=== PATIENT | male | born 1960 | race African-American/Black ===

== ENCOUNTER 2023-02-04 09:04 | Inpatient (IN) | payer OTHER ==
[2023-02-04 10:15] VITALS: BMI 17.7
[2023-02-04] MEDS ORDERED: DICYCLOMINE HCL 10 MG CAPSULE PO PRN (11:21)
[2023-02-04] MEDS ORDERED: NALOXONE HCL 0.4 MG/ML VIAL IM PRN (11:21)
[2023-02-04] MEDS ORDERED: MAGNESIUM HYDROX 2400MG/30ML ORAL SUSPENSION 30 ML CUP PO PRN (11:21)
[2023-02-04] MEDS ORDERED: ONDANSETRON *ODT* 4 MG TABLET SL PRN (11:21)
[2023-02-04] MEDS ORDERED: guaiFENesin 600 MG TABLET.ER (FP) PO PRN (11:21)
[2023-02-04] MEDS ORDERED: BENZONATATE 200 MG CAPSULE PO PRN (11:21)
[2023-02-04] MEDS ORDERED: NALOXONE HCL (KLOXXADO) 8 MG SPRAY NS PRN (11:21)
[2023-02-04] MEDS ORDERED: LOPERAMIDE HCL 2 MG CAPSULE PO PRN (11:21)
[2023-02-04] MEDS ORDERED: hydrOXYzine PAMOATE 25 MG CAPSULE (FP) PO PRN (11:21)
[2023-02-04] MEDS ORDERED: POLYETHYLENE GLYCOL (HEALTHYLAX) 3350 17 GM PACKET PO PRN (11:21)
[2023-02-04] MEDS ORDERED: BENZOCAINE/MENTHOL (CHLORASEPTIC ) LOZENGE MM PRN (11:21)
[2023-02-04] MEDS ORDERED: BISMUTH SUBSALICYLATE 524 MG/30 ML PO PRN (11:21)
[2023-02-04] MEDS ORDERED: MAG HYDROX/AL HYDROX/SIMETH 30 ML UNIT-DOSE CUP PO PRN (11:21)
[2023-02-04] MEDS ORDERED: LIDOCAINE 5% TOPICAL PATCH TP PRN (14:16)
[2023-02-04] MEDS: FERROUS SO4 325 MG TABLET (FP) PO SCH ×2 (15:14→23:19)
[2023-02-04] MEDS: PRENATAL VITAMINS W/ FOLIC ACID TABLET (FP) PO SCH (15:14)
[2023-02-04] MEDS ORDERED: diazePAM 5 MG TABLET PO PRN (17:47)
[2023-02-04] MEDS ORDERED: methaDONE HCL 10 MG TABLET (FOR DETOX USE ONLY) PO ONE (17:47)
[2023-02-04] MEDS ORDERED: cloNIDine HCL 0.1 MG TABLET PO PRN (17:47)
[2023-02-04] MEDS: METHOCARBAMOL 500 MG TABLET PO PRN (23:19)
[2023-02-04] MEDS: THIAMINE HCL 100 MG TABLET (FP) PO SCH (23:19)
[2023-02-04] MEDS: MELATONIN 5 MG TABLETS PO SCH (23:19)
[2023-02-04] MEDS: diazePAM 5 MG TABLET PO SCH (23:20)
[2023-02-04] MEDS: ACETAMINOPHEN 325 MG TABLET (FP) PO PRN (23:22)
[2023-02-04] MEDS: LIDOCAINE PATCH REMOVAL MC SCH (23:29)
[2023-02-05] MEDS: diazePAM 5 MG TABLET PO SCH ×4 (05:39→23:13)
[2023-02-05] MEDS: FERROUS SO4 325 MG TABLET (FP) PO SCH ×2 (10:18→23:12)
[2023-02-05] MEDS: PRENATAL VITAMINS W/ FOLIC ACID TABLET (FP) PO SCH (10:18)
[2023-02-05 10:21] LABS: POTASSIUM 3.4 mmol/L (3.5-5.1)
[2023-02-05 10:25] LABS: HEMATOCRIT 35.4 % (35.4-49); HEMOGLOBIN 11.5 GM/dL (11.7-16.9); MCH 27.2 pg (25.7-33.7); MCHC 32.4 g/dl (32.0-35.9); MEAN PLT VOLUME 7.8 fl (7.5-11.1); PLATELET COUNT 596 10^3/uL (134-434); RBC 4.22 M/mm3 (4.00-5.60); RDW 15.7 % (11.9-15.9); WHITE BLOOD COUNT 4.5 K/mm3 (4.0-10.0)
[2023-02-05 10:29] LABS: ALBUMIN 2.9 g/dl (3.4-5.0); BLOOD UREA NITROGEN 4.7 mg/dL (7-18); CREATININE 0.5 mg/dL (0.55-1.3)
[2023-02-05 10:30] LABS: BILIRUBIN,TOTAL 0.3 mg/dL (0.2-1); CALCIUM 9.8 mg/dL (8.5-10.1); TOT PROT 7.9 g/dl (6.4-8.2)
[2023-02-05] MEDS ORDERED: ALBUTEROL SO4 HFA INHALER IH PRN (12:25)
[2023-02-05] MEDS: ACETAMINOPHEN 325 MG TABLET (FP) PO PRN (12:34)
[2023-02-05] MEDS: ASPIRIN 81 MG CHEWABLE TABLETS PO SCH (12:50)
[2023-02-05] MEDS: POTASSIUM CHLORIDE ORAL LIQUID 20 MEQ/15 ML PO SCH ×2 (12:51→23:04)
[2023-02-05] MEDS: LACTULOSE 20 GM/30 ML UDC (FOR ORAL USE ONLY) PO SCH ×3 (13:45→23:04)
[2023-02-05] MEDS: LIDOCAINE PATCH REMOVAL MC SCH (23:12)
[2023-02-05] MEDS: MELATONIN 5 MG TABLETS PO SCH (23:13)
[2023-02-05] MEDS: THIAMINE HCL 100 MG TABLET (FP) PO SCH (23:13)
[2023-02-06] MEDS: diazePAM 5 MG TABLET PO SCH ×3 (05:54→22:21)
[2023-02-06] MEDS: METHOCARBAMOL 500 MG TABLET PO PRN ×3 (05:57→22:22)
[2023-02-06] MEDS ORDERED: methaDONE HCL 10 MG TABLET (FOR DETOX USE ONLY) PO ONE (10:00)
[2023-02-06] MEDS: PRENATAL VITAMINS W/ FOLIC ACID TABLET (FP) PO SCH (10:20)
[2023-02-06] MEDS: ASPIRIN 81 MG CHEWABLE TABLETS PO SCH (10:20)
[2023-02-06] MEDS: FERROUS SO4 325 MG TABLET (FP) PO SCH ×2 (10:21→22:18)
[2023-02-06] MEDS: LACTULOSE 20 GM/30 ML UDC (FOR ORAL USE ONLY) PO SCH ×4 (10:22→22:20)
[2023-02-06] MEDS: POTASSIUM CHLORIDE ORAL LIQUID 20 MEQ/15 ML PO SCH (10:22)
[2023-02-06 20:50] VITALS: RESP 16
[2023-02-06] MEDS: THIAMINE HCL 100 MG TABLET (FP) PO SCH (22:18)
[2023-02-06] MEDS: MELATONIN 5 MG TABLETS PO SCH (22:19)
[2023-02-06] MEDS: LIDOCAINE PATCH REMOVAL MC SCH (22:41)
[2023-02-07] MEDS: diazePAM 5 MG TABLET PO SCH ×2 (05:42→17:18)
[2023-02-07] MEDS: LACTULOSE 20 GM/30 ML UDC (FOR ORAL USE ONLY) PO SCH (10:07)
[2023-02-07] MEDS: ASPIRIN 81 MG CHEWABLE TABLETS PO SCH (10:07)
[2023-02-07] MEDS: FERROUS SO4 325 MG TABLET (FP) PO SCH ×2 (10:07→22:10)
[2023-02-07] MEDS: PRENATAL VITAMINS W/ FOLIC ACID TABLET (FP) PO SCH (10:08)
[2023-02-07] MEDS: METHOCARBAMOL 500 MG TABLET PO PRN ×2 (10:12→22:12)
[2023-02-07 11:54] LABS: HEMATOCRIT 32.9 % (35.4-49); HEMOGLOBIN 10.8 GM/dL (11.7-16.9); MCH 27.2 pg (25.7-33.7); MCHC 32.7 g/dl (32.0-35.9); MEAN PLT VOLUME 7.1 fl (7.5-11.1); PLATELET COUNT 572 10^3/uL (134-434); RBC 3.97 M/mm3 (4.00-5.60); RDW 15.9 % (11.9-15.9); WHITE BLOOD COUNT 4.3 K/mm3 (4.0-10.0)
[2023-02-07] MEDS: MELATONIN 5 MG TABLETS PO SCH (22:10)
[2023-02-07] MEDS: THIAMINE HCL 100 MG TABLET (FP) PO SCH (22:10)
[2023-02-07] MEDS: LIDOCAINE PATCH REMOVAL MC SCH (22:10)
[2023-02-08] MEDS ORDERED: diazePAM 5 MG TABLET PO ONE (06:00)
[2023-02-08 06:21] VITALS: PULSE 93
[2023-02-08 09:21] VITALS: BP 105/65; TEMP 97.8
[2023-02-08] MEDS: ASPIRIN 81 MG CHEWABLE TABLETS PO SCH (09:24)
[2023-02-08] MEDS: PRENATAL VITAMINS W/ FOLIC ACID TABLET (FP) PO SCH (09:24)
[2023-02-08] MEDS: FERROUS SO4 325 MG TABLET (FP) PO SCH (09:25)
== END 2023-02-08 10:03 | disposition home or self-care (01) | DRG 773 ==
LOC: YASAS 09:04 → Y3N 14:14
PROVIDERS: ADMIT Allergy & Immunology; ATTEND Surgery
PROC: HZ2ZZZZ Detoxification Services for Substance Abuse Treatment (ICD-10-PCS; principal; 2023-02-04)
DX: F11.23 Opioid dependence with withdrawal (principal); F10.230 Alcohol dependence with withdrawal, uncomplicated; F14.20 Cocaine dependence, uncomplicated; F12.20 Cannabis dependence, uncomplicated; D64.9 Anemia, unspecified; E72.20 Disorder of urea cycle metabolism, unspecified; M25.552 Pain in left hip; Z99.89 Dependence on other enabling machines and devices; Z59.01 Sheltered homelessness; F17.210 Nicotine dependence, cigarettes, uncomplicated
CPT/HCPCS: 36415; 80053; 80307; 82140; 82803; 83540; 83690; 84132; 85025; 85027; 86780; 87635; 87811; 93005; 93010; Q0162